=== PATIENT | female | born 1940 ===

== ENCOUNTER → 2017-06-08 | Day surgery (SDC) | payer MEDICARE ==
[~2017-06-08] MED LIST: 0.9% Sodium Chloride 1,000 ML IV SCH; ACET325T51 PO; ALBU8.5H2 INHALATION; BACL10TA PO; CETI10CA PO; CITA10TA9 PO; DETROL LA4 M1 PO; LOPE1TAB13 PO; Lactated Ringer's 1,000 ML IV ONE; MULT-1018 PO; OMEP20CA11 PO; OXYC-465 PO; PYR50 PO; Sodium Chloride LOK Flush 10 mL Syringe IV PRN; TRAZ-115 PO; fentaNYL-PF 50 mCg/mL 2 mL Inj IVPUSH PRN
== END | disposition home or self-care (01) ==
LOC: END 00:46
PROVIDERS: ATTEND Internal Medicine Gastroenterology
DX: Z85.038 Personal history of other malignant neoplasm of large intestine (principal)